=== PATIENT | female | born 1955 | race African-American/Black ===

== ENCOUNTER 2018-02-02 23:26 | Emergency (ER) | payer MEDICARE, MEDICAID ==
[~2018-02-02] VITALS: Ht 162.6 cm; Wt 47.6 kg
[~2018-02-02 23:26] MED LIST: GLIPIZIDE5 MG ORAL
[2018-02-02] MEDS ORDERED: LANTUS SOL100 UNIT/1 SUBQ (23:36)
[2018-02-02] MEDS ORDERED: FUROSEMIDE20 M1 ORAL (23:37)
[2018-02-02] MEDS ORDERED: LISINOPRIL20 MG ORAL (23:37)
[2018-02-02] MEDS ORDERED: Norco 5mg/325mg tab ORAL ONE (23:45)
[2018-02-03 00:25] VITALS: BP 193/80
--- NOTE | 2018-02-03 00:33 | Emergency Room Report ---
History of Present Illness General Chief Complaint: Upper Extremity Injury Source: Patient Present Illness HPI 62-year-old female, history of end-stage renal disease, presenting with right wrist pain after fall. Patient states that she had a mechanical fall, fell onto her outstretched hand, no complaint of wrist pain. Occurred about 4 hours prior to coming to the emergency room. Did not hit her head or lose consciousness. Complaining of wrist pain worse with any movement. No other injuries Allergies: Coded Allergies: HALOPERIDOL (Unverified Allergy, Severe, rash, 01/10/14) Patient History Past Medical History: see triage record Past Surgical History: none Pertinent Family History: none Reviewed Nursing Documentation: PMH: Agreed; PSxH: Agreed Nursing Documentation-PMH Past Medical History: No History, Except For Hx Cardiac Problems: Yes - Pacemaker,Hep C Hx Hypertension: Yes Hx Pacemaker: Yes Hx Diabetes: Yes Hx Gastrointestinal Problems: Yes - Hep C Possible Ascites Hx Dialysis: Yes - Shunt left upper arm Review of Systems All Other Systems: negative except mentioned in HPI Physical Exam Vital Signs Date Time Temp Pulse Resp B/P (MAP) Pulse Ox O2 Delivery O2 Flow Rate FiO2 02/02/18 23:31 99.1 86 16 196/96 99 Room Air 99.1 Sp02 EP Interpretation: reviewed, normal General Appearance: alert, GCS 15, moderate distress Head: normocephalic, atraumatic Eyes: bilateral eye normal inspection, bilateral eye PERRL, bilateral eye EOMI ENT: normal ENT inspection, normal pharynx, normal voice, moist mucus membranes Neck: normal inspection, full range of motion, supple Respiratory: normal inspection, lungs clear, normal breath sounds, no respiratory distress, no retraction, no wheezing, speaking full sentences, chest symmetrical Cardiovascular #1: normal inspection, regular rate, rhythm, no edema, normal capillary refill Cardiovascular #2: 2+ radial (R), 2+ radial (L) Gastrointestinal: normal inspection, non tender, soft, non-distended, no guarding Musculoskeletal: other - Right wrist with swelling, limited range of motion secondary to pain, full range of motion of elbow, fingers, no snuffbox tenderness, medial ulnar and radial nerves are intact, radial pulses intact Neurologic: normal inspection, alert, oriented x3, responsive, motor strength/ tone normal, sensory intact, normal gait, speech normal Psychiatric: normal inspection, judgement/insight normal, memory normal Skin: normal inspection, normal color, no rash, warm/dry, well hydrated, normal turgor Procedures Splinting Splinting : Consent: Verbal Location: R wrist Hand-Made Type: plaster Splint: volar Pre-Proc Neuro Vasc Exam: normal Post-Proc Neuro Vasc Exam: normal Patient Tolerated: Well Complications: None Medical Decision Making Diagnostic Impression: Primary Impression: Distal radius fracture, right ER Course 62-year-old female with right wrist pain DDX: Contusionvs. fracture Plan: Pain control XR ER course: volar splint applied, before and after neurovascularly intact. Disposition: Patient is to be discharged home Patient instructed to keep splint on at all times, and to follow up with orthopedic surgery in 1 week. Patient educated to rest, ice, and elevate extremity and to avoid vigorous activity. Strict precautions discussed with patient on when to return to the emergency room including increased redness or swelling joints, increased pain/swelling of extremity, fever or chills, which could indicate severe illness. Please note that this Emergency Department Report was dictated using [employer]eebe[employer] maker technology software, occasionally this can lead to erroneous entry secondary to interpretation by the dictation equipment. Xray ordered: Right wrist 3 view Indication: Pain EP Interpretation: Yes Interpretation: Distal radius fracture, nondisplaced Impression: Distal radius fracture, nondisplaced Electronically signed by Emilia Laws MD Xray ordered: R hand 3 view Indication: Pain EP Interpretation: Yes Interpretation: Distal radius fracture, nondisplaced Impression: Distal radius fracture, nondisplaced Electronically signed by Emilia Laws MD Xray ordered: R forearm 3 view Indication: Pain EP Interpretation: Yes Interpretation: Distal radius fracture, nondisplaced Impression: Distal radius fracture, nondisplaced Electronically signed by Emilia Laws MD Last Vital Signs Date Time Temp Pulse Resp B/P (MAP) Pulse Ox O2 Delivery O2 Flow Rate FiO2 02/03/18 00:25 99.1 80 16 193/80 98 Room Air 99.1 Disposition: HOME, SELF-CARE Condition: Improved Patient Instructions: Radial Fracture Additional Instructions: PLEASE SEE AN ORTHOPEDIC DOCTOR IN 1 WEEK WITHOUT FAIL Emilia Laws M.D. Feb 03, 2018 00:33
[2018-02-03 00:41] VITALS: BP 193/80
--- NOTE | 2018-02-03 09:12 | Diagnostic Imaging Report ---
Indications: Pain, status post fall Technique: Two views of the right forearm Comparison: None Findings: There is a comminuted nondisplaced distal radial fracture. There is an associated ulnar styloid fracture. No proximal shaft fracture demonstrated Impression: Positive for distal radial fracture and ulnar styloid fracture
--- NOTE | 2018-02-03 09:13 | Diagnostic Imaging Report ---
Clinical Indication:Pain, status post fall Technique: 3 views of the right wrist Comparison: None Findings: There is a comminuted fracture of the distal radius. This is nondisplaced, but does involve the articular surface. There is a small sliver of density adjacent to the ulnar styloid which probably represents a small fracture fragment as well. There is fairly extensive calcification of the triangular fibrocartilage. No carpal fracture demonstrated. The joint spaces are preserved. The bones are somewhat osteoporotic. Impression: Positive for comminuted distal radial fracture Suspect small ulnar styloid fracture Osteoporotic change
--- NOTE | 2018-02-03 09:14 | Diagnostic Imaging Report ---
Clinical Indication:Pain, status post fall Technique: 3 views of the right wrist Comparison: None Findings: There is a comminuted nondisplaced fracture of the distal radius which extends into the articular surface. There is probably a tiny fracture off the ulnar styloid. There is calcification of the triangular fibrocartilage. Joint spaces are preserved. Bones are osteoporotic Impression: Positive for comminuted distal radial fracture
== END 2018-02-03 00:41 | disposition home or self-care (01) ==
LOC: EDBD 23:26 → EMR 23:41
DX: S52.501A Unspecified fracture of the lower end of right radius, initial encounter for closed fracture (principal); E11.22 Type 2 diabetes mellitus with diabetic chronic kidney disease; I12.0 Hypertensive chronic kidney disease with stage 5 chronic kidney disease or end stage renal disease; N18.6 End stage renal disease; B19.20 Unspecified viral hepatitis C without hepatic coma; Z88.8 Allergy status to other drugs, medicaments and biological substances; Z95.0 Presence of cardiac pacemaker; W01.0XXA Fall on same level from slipping, tripping and stumbling without subsequent striking against object, initial encounter; Y92.9 Unspecified place or not applicable
CPT/HCPCS: 29125; 99284

== ENCOUNTER 2020-09-21 23:05 | Emergency (ER) | payer MEDICARE, MEDICAID ==
[~2020-09-21] VITALS: Ht 167.6 cm; Wt 61.2 kg
[2020-09-21 23:05] VITALS: BP 106/52
[~2020-09-21 23:05] MED LIST changes: +FUROSEMIDE20 M1 ORAL; +LANTUS SOL100 UNIT/1 SUBQ; +LISINOPRIL20 MG ORAL
--- NOTE | 2020-09-21 23:45 | Emergency Room Report ---
History of Present Illness General Chief Complaint: General Complaint Source: Patient, EMS (Jeremy Blake MD) Present Illness HPI Patient started bleeding from her shunt this evening. She says it was bleeding like a geyser. Paramedics wrapped it but it still was bleeding through the wrap. She says her blood pressure was low. She has some epigastric discomfort when her blood pressure gets low. She feels this now probably 2-4 and aching. Not sure how much blood she is lost. She had dialysis earlier today. Her blood pressures usually 1 20-1 40. She says it was 97 with the paramedics. She says her hemoglobin last was 9.7. Apparently they were planning on transfusing her with this next dialysis. H/O pulmonary hypertension. Recently started on new medication. Was considering liver and renal transplant, then held due to pulm htn. No fevers, chills, sore throat, chest pain, palpitations, nausea, vomiting, diarrhea, dysuria, abdominal pain, shortness of breath, depression, anxiety, visual changes, dizziness, headache. 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 COVID-19 Screening: Negative COVID-19 COVID-19 Testing Source: [facility] (Jeremy Blake MD) Patient History Past Medical History: see triage record Past Surgical History: other - fistula L upper arm Social History: Denies: smoking, alcohol use, drug use Social History Narrative from home Now: No Reviewed Nursing Documentation: PMH: Agreed; PSxH: Agreed (Jeremy Blake MD) Nursing Documentation-PMH Hx Cardiac Problems: Yes - Pacemaker,Hep C Hx Hypertension: Yes Hx Pacemaker: Yes Hx Diabetes: Yes Hx Gastrointestinal Problems: Yes - Hep C Possible Ascites Hx Dialysis: Yes - Shunt left upper arm (Jeremy Blake MD) Review of Systems All Other Systems: negative except mentioned in HPI (Jeremy Blake MD) Physical Exam Vital Signs Date Time Temp Pulse Resp B/P (MAP) Pulse Ox O2 Delivery O2 Flow Rate FiO2 09/21/20 23:05 98.6 81 18 95/53 (67) 96 Room Air Sp02 EP Interpretation: reviewed, normal General Appearance: well appearing, no apparent distress, GCS 15 Head: normocephalic, atraumatic Eyes: bilateral eye PERRL, bilateral eye EOMI, bilateral eye conjunctivae pale ENT: moist mucus membranes Neck: supple Respiratory: lungs clear, normal breath sounds Cardiovascular #1: regular rate, rhythm Cardiovascular #2: 2+ radial (R), 2+ radial (L) - fistula with active bleeding, distal capillary refill normal Gastrointestinal: normal inspection, normal bowel sounds, non tender, no mass, non-distended Rectal: heme positive stool - no melena - blood mixed with stool Musculoskeletal: back normal, normal range of motion, gait/station normal Neurologic: alert, oriented x3 Psychiatric: mood/affect normal Skin: no rash, warm/dry, other - see freda, muldamaris scars (Jeremy Blake MD) Procedures Critical Care Time Critical Care Time Total Critical Care Time: 60 min bedside evaluation and treatment excludes procedures (EKG, CVP, hemorrhage control). Reason for critical care: Control of critical hemorrhage from dialysis shunt, repeat evaluations, assessment of GI bleed, multiple discussions with [facility] Possible complications: hypotension, hypertension, IL, shock, arrhythmias, metabolic acidosis, end organ damage, respiratory failure, life-threatening hemorrhage. Interventions: Hemorrhage control, assessment of GI bleed, central line, multiple discussions with transferring physicians at [facility] Course: Patient presents with acute bleed from dialysis fistula. Immediate hemorrhage control with blood pressure cuff tourniquet application and Dermabond. Total time of hemorrhage control 15 to 20 minutes at bedside. Multiple discussions with [facility]. Reassessment of patient with history suggestive of GI bleed. Establishment of IV access with central line. Administration of Protonix orally. Reassessment with treatment with morphine for body pain. Multiple discussions with [facility]. [facility]. Consultations: nursing staff, EMS, multiple discussions with [facility] emergency physician Performed by: Dr. Blake Tolerated well condition = serious (Jeremy Blake MD) Central Line Central Line : Consent: Verbal Central Line Lumen: triple Maximal Sterile Barrier Tech: yes cap, yes mask, yes sterile gown, yes sterile gloves, yes large sterile sheet, yes hand hygiene, yes chlorhexidine prep Central Line Postion: internal jugular (R) Anesthesia: Lidocaine cc's of anesthesia: 3 US Guided Line?: Yes Vessel visualized with U/S: Right Internal Jugular Ultrasound Findings: Collapsible Vessel, Vessel Patent, Visualize vessel puncture Complications: none Central Line Post Position: sutured, good blood return, position confirmed w/ CXR Attempts: One Patient Tolerated: Well Complications: None Progress EBL = 3 ml (Jeremy Blake MD) Additional Procedure Procedure Narrative Acute hemorrhage control: Using a blood pressure cuff for a tourniquet this was applied by me and set 130 systolic. The dressing was taken off. I applied pressure both above and below the bleeding area and prepped the area with Betadine. Active bleeding was controlled with Dermabond. The blood pressure cuff was then taken off. Total time of tourniquet less than 20 minutes. The wound was observed by me. Bleeding was controlled. (Jeremy Blake MD) Medical Decision Making Diagnostic Impression: Primary Impression: Hemorrhage from dialysis shunt Qualified Codes: T82.838A - Hemorrhage due to vascular prosthetic devices, implants and grafts, initial encounter Additional Impressions: Anemia Qualified Codes: D64.9 - Anemia, unspecified End stage renal disease on dialysis GI bleed Qualified Codes: K92.2 - Gastrointestinal hemorrhage, unspecified ER Course Patient presents with brisk bleeding from dialysis fistula left upper arm. This needs immediate control. See procedure note. The patient had dialysis earlier today so we anticipate that her electrolytes will be good. She did have anemia prior to the bleed and this needs to be checked at this time. Hemoglobin is dropped from 9-7.2. Patient's retention is improved. Patient is hemodynamically stable without evidence of further bleeding. Discussed with Dr.Chhiv Mcadams who accepts patient. On discussion with the patient she says that she passed dark blood per rectum 2 days ago and had black stools yesterday. In addition she states that she has been having some epigastric discomfort recently. Initially she said this was due to her dialysis and hypotension however now she is claiming that this is something new. Call back to [facility] to discuss the issue of GI bleeding. Discussed with Dr. Avila who requested that I place a central line. I discussed with him that she was hemodynamically stable and central line was not indicated. Full IV is attempted by SMASH HAND. 340 Unable to start IV. Right low internal jugular CVP started by ER MD see procedure note. Patient complaining about generalized body pain at this time and dose of Zofran and morphine administered. Repeat H&H sent to the lab at the request of [facility] physician. Repeat H&H: 6.9/18.1. Although values are low vital signs are stable. Emergent transfusion not indicated at this time. Patient was signed out to Dr. Hein for final disposition as per [facility] physicians were still in discussion about stability of the patient and ultimate disposition at [facility]. Discussed transfer with patient. Laboratory Tests Test 09/21/20 23:47 09/22/20 05:11 White Blood Count 3.9 K/UL (4.8-10.8) L 4.5 K/UL (4.8-10.8) L Red Blood Count 2.06 M/UL (4.20-5.40) L 1.98 M/UL (4.20-5.40) L Hemoglobin 7.2 G/DL (12.0-16.0) L 6.9 G/DL (12.0-16.0) *L Hematocrit 20.3 % (37.0-47.0) L 18.1 % (37.0-47.0) L Mean Corpuscular Volume 99 FL (80-99) 91 FL (80-99) # Mean Corpuscular Hemoglobin 35.1 PG (27.0-31.0) H 34.8 PG (27.0-31.0) H Mean Corpuscular Hemoglobin Concent 35.6 G/DL (32.0-36.0) 38.0 G/DL (32.0-36.0) H Red Cell Distribution Width 14.8 % (11.6-14.8) 16.8 % (11.6-14.8) H Platelet Count 138 K/UL (150-450) L 145 K/UL (150-450) L Mean Platelet Volume 6.9 FL (6.5-10.1) 7.4 FL (6.5-10.1) Neutrophils (%) (Auto) % (45.0-75.0) % (45.0-75.0) Lymphocytes (%) (Auto) % (20.0-45.0) % (20.0-45.0) Monocytes (%) (Auto) % (1.0-10.0) % (1.0-10.0) Eosinophils (%) (Auto) % (0.0-3.0) % (0.0-3.0) Basophils (%) (Auto) % (0.0-2.0) % (0.0-2.0) Prothrombin Time 12.0 SEC (9.30-11.50) H Prothrombin Time INR 1.1 (0.9-1.1) Activated Partial Thromboplast Time 28 SEC (23-33) Sodium Level 137 MMOL/L (136-145) Potassium Level 4.7 MMOL/L (3.5-5.1) Chloride Level 101 MMOL/L (98-107) Carbon Dioxide Level 30 MMOL/L (21-32) Anion Gap 6 mmol/L (5-15) Blood Urea Nitrogen 29 mg/dL (7-18) H Creatinine 3.8 MG/DL (0.55-1.30) H Estimated Glomerular Filtration Rate 14.4 mL/min (>60) Glucose Level 350 MG/DL (74-106) H Calcium Level 7.5 MG/DL (8.5-10.1) L Total Bilirubin 0.3 MG/DL (0.2-1.0) Aspartate Amino Transferase (AST) 25 U/L (15-37) Alanine Aminotransferase (ALT) 18 U/L (12-78) Alkaline Phosphatase 64 U/L (46-116) Troponin I 0.032 ng/mL (0.000-0.056) Total Protein 6.5 G/DL (6.4-8.2) Albumin 2.5 G/DL (3.4-5.0) L Globulin 4.0 g/dL Albumin/Globulin Ratio 0.6 (1.0-2.7) L Neutrophils % (Manual) Pending Lymphocytes % (Manual) Pending Platelet Estimate Pending Platelet Morphology Pending (Jeremy Blake MD) ER Course Patient was accepted by [facility] in transfer and patient be transferred to [facility] facility. Bleeding had been controlled by Dr. Blake. Patient be transferred to [facility]. (Abilio Hein MD) EKG Diagnostic Results Rate: normal Rhythm: NSR ST Segments: no acute changes - Left atrial enlargement left ventricular hypertrophy (Jeremy Blake MD) Rhythm Strip Diag. Results EP Interpretation: yes Rhythm: NSR, no PVC's, no ectopy (Jeremy Blake MD) Chest X-Ray Diagnostic Results Chest X-Ray Diagnostic Results : Chest X-Ray Ordered: Yes # of Views/Limited/Complete: 1 View Indication: Other EP Interpretation: Yes Interpretation: no pneumothorax, other - Central line in right SVC, c ardiomegaly pacemaker, atelectasis right lung and possible effusion Impression: Other Electronically Signed by: Electronically signed by Jeremy Blake MD (Jeremy Blake MD) Last Vital Signs Date Time Temp Pulse Resp B/P (MAP) Pulse Ox O2 Delivery O2 Flow Rate FiO2 09/22/20 07:18 98.2 72 17 127/53 94 Room Air Status: improved (Jeremy Blake MD) Status: improved (Abilio Hein MD) Disposition: SHORT-TERM HOSP Condition: Serious Referrals: [facility] (PCP) Jeremy Blake MD Sep 21, 2020 23:45 Abilio Hein MD Sep 22, 2020 07:39
[2020-09-22 00:09] LABS: CALCIUM 7.5 MG/DL (8.5-10.1); CREATININE 3.8 MG/DL (0.55-1.30); POTASSIUM 4.7 MMOL/L (3.5-5.1)
[2020-09-22 00:10] LABS: INR 1.1 (0.9-1.1)
[2020-09-22 00:14] LABS: ALBUMIN 2.5 G/DL (3.4-5.0); ALBUMIN/GLOBULIN RATIO 0.6 (1.0-2.7); BILIRUBIN,TOTAL 0.3 MG/DL (0.2-1.0)
[2020-09-22 00:41] LABS: HEMATOCRIT 20.3 % (37.0-47.0); HEMOGLOBIN 7.2 G/DL (12.0-16.0); MEAN CORPUSCULAR VOLUME 99 FL (80-99); PLATELET COUNT 138 K/UL (150-450); RED BLOOD COUNT 2.06 M/UL (4.20-5.40); RED CELL DISTRIBUTION WIDTH 14.8 % (11.6-14.8); WHITE BLOOD COUNT 3.9 K/UL (4.8-10.8)
[2020-09-22] MEDS ORDERED: Mylanta II UD 30ml ORAL ONE (03:30)
[2020-09-22] MEDS ORDERED: Lidocaine 1% MPF 10mg/ml 5ml INJ ONE (03:45)
[2020-09-22] MEDS ORDERED: Lidocaine 1% Plain 30 ml INJ ONE (03:45)
[2020-09-22 04:48] VITALS: BP 140/64
[2020-09-22] MEDS ORDERED: Morphine Sulfate 4mg/ml Inj (IV USE ONLY) IVP ONE ×2 (05:00)
[2020-09-22 06:13] LABS: HEMATOCRIT 18.1 % (37.0-47.0); MEAN CORPUSCULAR VOLUME 91 FL (80-99); PLATELET COUNT 145 K/UL (150-450); RED BLOOD COUNT 1.98 M/UL (4.20-5.40); RED CELL DISTRIBUTION WIDTH 16.8 % (11.6-14.8); WHITE BLOOD COUNT 4.5 K/UL (4.8-10.8)
[2020-09-22 06:16] LABS: HEMOGLOBIN 6.9 G/DL (12.0-16.0)
[2020-09-22 06:27] VITALS: BP 129/54
[2020-09-22 07:18] VITALS: BP 127/53
[2020-09-22 09:20] VITALS: BP 125/80
--- NOTE | 2020-09-22 21:13 | Diagnostic Imaging Report ---
Indication: Post central line placement Technique: One view of the chest Comparison: 01/10/2014 Findings: There is a band of atelectasis in the right midlung. There is a right jugular central venous catheter, tip of which projects at the level of the high right atrium, well positioned. No pneumothorax. New left chest pacemaker is demonstrated. The heart is enlarged. There is blunting of left costophrenic sulcus. Impression: Satisfactory placement right jugular central venous catheter. No radiographic evident complication. Cardiomegaly Left pleural effusion Pacemaker
== END 2020-09-22 09:20 | disposition short-term general hospital (02) ==
LOC: EDBD 23:05 → EMR 23:15
DX: T82.838A Hemorrhage due to vascular prosthetic devices, implants and grafts, initial encounter (principal); D64.9 Anemia, unspecified; K92.2 Gastrointestinal hemorrhage, unspecified; E11.22 Type 2 diabetes mellitus with diabetic chronic kidney disease; I13.11 Hypertensive heart and chronic kidney disease without heart failure, with stage 5 chronic kidney disease, or end stage renal disease; N18.6 End stage renal disease; Z95.828 Presence of other vascular implants and grafts; Z99.2 Dependence on renal dialysis; Z88.8 Allergy status to other drugs, medicaments and biological substances
CPT/HCPCS: 36415; 36569; 71045; 80053; 84484; 85007; 85025; 85610; 85730; 86850; 86870; 86880; 86900; 86901; 93005; 96374; 96375; 96376; 99291; J2001; J2270; J2405